=== PATIENT | male | born 1990 | race Caucasian/White ===

== ENCOUNTER 2020-03-05 09:54 | Emergency (ER) | payer SELFPAY ==
[2020-03-05 09:58] VITALS: BP 124/85; PULSE 87; RESP 18; TEMP 36.7; O2SAT 97
--- NOTE | 2020-03-05 10:29 | W.ED.GENAD ---
Discharge Plan Disposition Patient Disposition: HOME Condition: Stable Discharge Details Chief Complaint: DentalOral Clinical Impression: Dental infection Primary Care Provider: Unknown,Unknown ED Provider: Kervin Ramirez Home Meds and New Rx's Prescriptions: New penicillin V potassium 500 mg tablet 500 mg PO TID 10 Days Qty: 30 RF: 0 No Action cetirizine [Zyrtec] 10 mg Tablet 10 mg PO DAILY RF: 0 Discharge Instructions Instructions: Dental Abscess (ED) Additional Instructions: Penicillin as directed. [id number] Tylenol and/or Motrin as directed for discomfort. Warm compresses every 2 hours for 20 minutes. Please watch for new or worsening symptoms and return to the ER for any concerns. Using the list provided, I strongly recommend establishing a dentist and following up at next available appointment. Medical Decision Making 29-year-old gentleman presents with dental pain, facial swelling for the past few days. He appears well, nontoxic. He is afebrile and no evidence of trismus. Airway is patent. Patient does have poor dentition throughout however his right inferior frontal molar does appear to be cracked, does have tenderness. No obvious abscess or fluctuation present. Likely early dental infection. Will provide prescription and dental list for prompt outpatient dental follow-up. Patient is comfortable this plan and has no additional questions or concerns. Will take [id number] Tylenol and/or Motrin for discomfort and use warm compresses every 2 hours for 20 minutes. HPI General Mode of arrival: ambulatory. Date/Time Provider Initiated Documentation: 03/05/20 10:17. Limitations to Documentation: no limitations. Information obtained by: patient. HPI Narrative: 29-year-old gentleman who reports vaping daily, denies any other past medical history, reports poor dentition chronically however now with mild right lower dental pain and mild swelling of the past few days. He denies any fever. Reports the pain does radiate into his ear. Denies decreased hearing. Denies sore throat or fever. He does not have a dentist. Related Data Home Medications Medication Instructions Recorded Confirmed cetirizine [Zyrtec] 10 mg PO DAILY 03/05/20 03/05/20 penicillin V potassium 500 mg PO TID 10 Days #30 tab 03/05/20 Previous Rx's Medication Instructions Recorded penicillin V potassium 500 mg PO TID 10 Days #30 tab 03/05/20 Allergies Allergy/AdvReac Type Severity Reaction Status Date / Time No Known Allergies Allergy Unverified 03/05/20 10:01 General Stated Complaint: DentalOral NORA: 4 Review of Systems Constitutional Constitutional: Denies fever(s) Eyes Eyes: Denies eye discharge ENT Ears, Nose, Mouth, and Throat: Denies neck pain and Denies sore throat Cardiovascular Cardiovascular: Denies chest pain and Denies dyspnea Respiratory Respiratory: Denies cough and Denies dyspnea Musculoskeletal Musculoskeletal: Denies neck pain Integumentary/Breasts Skin/Breast: Denies rash [facility] Social History Smoking/Tobacco Use Status: Current every day Tobacco Type: e-cigarettes Alcohol Intake: never Substance use type: marijuana Do you feel safe at home: Yes Do you feel safe in your relationship?: Yes Exam Const General: cooperative, healthy appearing, comfortable and no acute distress Orientation: alert and awake HENMT Head: normal to inspection, normocephalic and atraumatic Ears: external ears normal, TM's normal bilaterally and EAC's normal Face and sinus: tenderness (Minimal tenderness and swelling right mandibular region) Mouth: moist mucous membranes and other (No trismus) Teeth and gingiva: poor dentition and other (Right front inferior molar, cracked, tenderness.) Throat: posterior oropharynx normal Eyes Conjunctivae: conjunctivae normal Neck Neck: normal visual inspection, full ROM, no lymphadenopathy, trachea midline and supple Resp Effort & Inspection: normal respiratory effort and able to speak in complete sentences Auscultation: clear to auscultation bilaterally Cardio Rate: regular rate Rhythm: regular rhythm Skin General skin exam: no rashes or lesions noted Neuro General: patient alert, patient awake, moves all extremities and no focal motor deficits Sensory Exam: no sensory deficits noted Psych Appearance: grossly normal Mental Status: mental status grossly normal Course Vital Signs Vital signs: Vital Signs Temperature 36.7 C 03/05/20 09:58 Pulse 87 03/05/20 09:58 Respiratory Rate 18 03/05/20 09:58 Blood Pressure 124/85 03/05/20 09:58 Pulse Oximetry 97 03/05/20 09:58 Temperature 36.7 C 03/05/20 09:58 Pulse 87 03/05/20 09:58 Respiratory Rate 18 03/05/20 09:58 Respiratory Effort Non-Labored 03/05/20 10:02 Blood Pressure 124/85 03/05/20 09:58 Blood Pressure Position Supine 03/05/20 09:58 Pulse Oximetry 97 03/05/20 09:58 Oxygen Delivery Method Room Air 03/05/20 09:58 Oxygen Flow Rate 0 03/05/20 09:58 Pain Level 5 03/05/20 09:58
== END 2020-03-05 10:34 | disposition home or self-care (01) ==
LOC: ER 10:39
PROVIDERS: Emergency Provider Physician Assistant
DX: R68.84 Jaw pain (principal); K04.7 Periapical abscess without sinus; K03.81 Cracked tooth
CPT/HCPCS: 99283